=== PATIENT | male | born 1960 | race Caucasian/White ===

== ENCOUNTER 2017-01-04 12:33 | Emergency (ER) | payer BC ==
[2017-01-04] MEDS ORDERED: Ondansetron 4 MG/2 ML SDV ONE (12:49)
[2017-01-04] MEDS ORDERED: Ondansetron 4 MG/2 ML SDV IVPUSH ONE (12:50)
[2017-01-04] MEDS ORDERED: Sodium Chloride 0.9% 1,000 ML IV SCH (12:50)
[2017-01-04] MEDS ORDERED: Morphine 2 MG/ML Syringe IVPUSH ONE (12:57)
[2017-01-04] MEDS ORDERED: ceFAZolin 1 GM in Premix Bag 1 BAG IV ONE (13:07)
[2017-01-04] MEDS ORDERED: ceFAZolin 2 GM in Premix Bag 1 BAG IV ONE (13:12)
[2017-01-04 13:26] LABS: CHLORIDE,CL 105 mmol/L (98-110); SODIUM,NA 137 mmol/L (136-146)
[2017-01-04] MEDS ORDERED: Diphtheria,Pertussis(Acell),Tetanus Vaccine 0.5 ML Syringe IM ONE (13:35)
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
[2017-01-04] MEDS ORDERED: Sodium Chloride 0.9% 1,000 ML IV ONE (14:03)
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
[2017-01-04] MEDS ORDERED: HYDROmorphone 2 MG/ML Syringe IVPUSH ONE (14:55)
[2017-01-04] MEDS ORDERED: Prochlorperazine 10 MG/2 ML SDV IVPUSH ONE (14:55)
[2017-01-04] MEDS ORDERED: Lidocaine 2% Viscous Solution 15 ML Cup ONE (14:56)
[2017-01-04] MEDS ORDERED: Lidocaine 1% 20 ML MDV INJECT ONE ×2 (14:57→15:18)
[2017-01-04] MEDS ORDERED: Lidocaine 1% 20 ML MDV ONE (15:10)
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
[2017-01-04] MEDS ORDERED: Levofloxacin/Dextrose 5%-Water 500 MG in Premix Bag 1 BAG IV ONE (15:30)
[2017-01-04] MEDS ORDERED: Bupivacaine 0.5% 10 ML SDV INJECT ONE (15:51)
[2017-01-04 17:57] VITALS: BP 141/64
== END 2017-01-04 17:54 | disposition home or self-care (01) ==
LOC: MW.ED 12:33
DX: S81.811A Laceration without foreign body, right lower leg, initial encounter (principal); T14.8 Other injury of unspecified body region; F32.9 Major depressive disorder, single episode, unspecified; Z98.890 Other specified postprocedural states; Z79.899 Other long term (current) drug therapy; Z23 Encounter for immunization; V86.99XA Unspecified occupant of other special all-terrain or other off-road motor vehicle injured in nontraffic accident, initial encounter
CPT/HCPCS: 12004; 73552; 73590; 80053; 85025; 86317; 90471; 90715; 96361; 96365; 96367; 96375; 99284; J0690; J1170; J1956; J2270; J2405; J7040; 36415